=== PATIENT | female | born 1960 | race Caucasian/White ===

== ENCOUNTER → 2017-12-17 | Outpatient (REF) | payer BC | LOC: M SFHCWAGY 10:05 | DX: Z12.4 Encounter for screening for malignant neoplasm of cervix (principal) | CPT/HCPCS: G0123 ==

== ENCOUNTER → 2017-12-17 | Outpatient (CLI) | payer BC | LOC: M WHC 09:36 | DX: Z12.31 Encounter for screening mammogram for malignant neoplasm of breast (principal) ==

== ENCOUNTER 2018-12-20 08:50 | Day surgery (SDC) | payer BC ==
[~2018-12-20] VITALS: Ht 165.1 cm; Wt 85.9 kg
[2018-12-20] MEDS ORDERED: LISI40TA PO (09:02)
[2018-12-20] MEDS ORDERED: ASPI81TA85 PO (09:02)
[2018-12-20] MEDS ORDERED: AMOX500T2 (09:02)
[2018-12-20] MEDS ORDERED: CHLO125TA PO (09:02)
[2018-12-20] MEDS ORDERED: LEVO112T2 (09:02)
[2018-12-20 09:43] LABS: HEMATOCRIT 39.4 % (36.0-47.0); HEMOGLOBIN 13.2 g/dl (12.0-15.5); MEAN CORPUSCULAR HEMOGLOBIN 29.8 pg (27.0-33.0); MEAN CORPUSCULAR HGB CONC 33.5 g/dl (32.0-36.5); MEAN CORPUSCULAR VOLUME 88.9 fl (80.0-96.0); PLATELET COUNT, AUTOMATED 416 10^3/uL (150-450); RED BLOOD COUNT 4.43 10^6/uL (4.00-5.40); WHITE BLOOD COUNT 15.8 10^3/uL (4.0-10.0)
[2018-12-20] MEDS ORDERED: MORPHINE 2 MG/ML 1ML SYRINGE (J2270) IV ONE ×2 (09:45→17:45)
[2018-12-20 10:03] LABS: BLOOD UREA NITROGEN 28 MG/DL (7-18); CALCIUM LEVEL 9.5 MG/DL (8.5-10.1); CARBON DIOXIDE LEVEL 25 MEQ/L (21-32); CHLORIDE LEVEL 103 MEQ/L (98-107); CREATININE FOR GFR 0.98 MG/DL (0.55-1.30); GLOMERULAR FILTRATION RATE > 60.0 (>51); GLUCOSE, FASTING 111 MG/DL (70-100); POTASSIUM SERUM 3.6 MEQ/L (3.5-5.1); SODIUM LEVEL 138 MEQ/L (136-145)
[2018-12-20] MEDS ORDERED: NS 1,000 ML IV ONE (10:15)
[2018-12-20] MEDS ORDERED: ONDANSETRON 4MG/2ML VIAL (J2405) IV ONE ×2 (10:30→17:45)
--- NOTE | 2018-12-20 11:03 | REP ---
ULTRASOUND LEFT PERINEUM: Real-time sonographic evaluation of the left perineum performed at the site of swelling and redness in the inner groin and upper labia. At that location, there is heterogeneous signal suggesting abscess and phlegmon. This measures approximately 5.9 x 3.0 x 3.4 cm. Electronically Signed by Tan Stark MD 12/20/2018 11:06 A
[2018-12-20] MEDS ORDERED: METOCLOPRAMIDE INJ 10MG/2ML VIAL (J2765) IV ONE (11:45)
[2018-12-20] MEDS ORDERED: LIDOCAINE 2% MDV 20 ML VIAL SC ONE (12:15)
[2018-12-20] MEDS ORDERED: SYNT100T PO (13:54)
[2018-12-20] MEDS ORDERED: KETOROLAC 30 MG/ML VIAL (J1885) IV PRN (18:15)
[2018-12-20] MEDS ORDERED: ONDANSETRON 4MG/2ML VIAL (J2405) IV PRN ×2 (18:15→22:15)
[2018-12-20] MEDS ORDERED: MORPHINE 4 MG/ML 1ML VIAL/SYRINGE (J2270) IV PRN ×2 (18:15)
[2018-12-20] MEDS ORDERED: LIDOCAINE 2% INJ 100 MG/5 ML SDV (FOR ANES.) As Ordered ONE (19:40)
[2018-12-20] MEDS ORDERED: ONDANSETRON 4MG/2ML VIAL (J2405) As Ordered ONE (19:40)
[2018-12-20] MEDS ORDERED: dexameTHASONE 4 MG/ML 1ML VIAL (J1100) As Ordered ONE (19:40)
[2018-12-20] MEDS ORDERED: fentaNYL 100 MCG/2 ML INJECTION (J3010) As Ordered ONE (19:41)
[2018-12-20] MEDS ORDERED: MIDAZOLAM INJ 2 MG/2 ML VIAL (J2250) As Ordered ONE (19:41)
[2018-12-20] MEDS ORDERED: BUPIVACAINE HCL 0.5% 30 ML VIAL As Ordered ONE (20:39)
[2018-12-20] MEDS: PIPERACILLIN/TAZOBACTAM SOD 3.375 GM in D5W MINI-BAG PLUS 50 ML IV SCH (21:15)
[2018-12-20] MEDS ORDERED: METOCLOPRAMIDE INJ 10MG/2ML VIAL (J2765) As Ordered ONE (21:17)
[2018-12-20] MEDS ORDERED: PHENYLephrine HCL 500 MCG/5 ML (100MCG/ML) SYRINGE (J2370) As Ordered ONE (21:21)
[2018-12-20] MEDS ORDERED: KETOROLAC 60 MG/2 ML VIAL (J1885) As Ordered ONE (21:33)
[2018-12-20] MEDS: LR 1,000 ML IV SCH ×2 (21:51→22:50)
[2018-12-20] MEDS ORDERED: ACETAMINOPHEN TAB 650MG DOSE (2X325MG) PO PRN (22:00)
[2018-12-20] MEDS ORDERED: fentaNYL 100 MCG/2 ML INJECTION (J3010) IV PRN (22:15)
[2018-12-20] MEDS ORDERED: PERCOCET 5MG/325MG TAB PO PRN (22:15)
[2018-12-20] MEDS ORDERED: LR 1,000 ML IV SCH (22:15)
[2018-12-20] MEDS ORDERED: METOCLOPRAMIDE INJ 10MG/2ML VIAL (J2765) IV PRN (22:15)
[2018-12-20] MEDS ORDERED: MEPERIDINE INJ 25 MG/ML VIAL (J2175) IV PRN (22:15)
[2018-12-20] MEDS ORDERED: PERCOCET 5MG/325MG TAB As Ordered ONE (22:16)
[2018-12-20 23:00] VITALS: BP 112/54
[2018-12-20 23:30] VITALS: BP 105/52
[2018-12-21] VITALS (8 sets, daily range): BP systolic 91–121; BP diastolic 50–58
[2018-12-21] MEDS: PIPERACILLIN/TAZOBACTAM SOD 3.375 GM in D5W MINI-BAG PLUS 50 ML IV SCH ×4 (01:28→18:41)
[2018-12-21] MEDS: LEVOTHYROXINE 100MCG TABLET (0.1MG) PO SCH (06:08)
--- NOTE | 2018-12-21 08:06 | RO ---
DATE OF PROCEDURE: 12/20/2018 PREOPERATIVE DIAGNOSIS: Perirectal abscess. POSTOPERATIVE DIAGNOSIS: Perirectal abscess. PROCEDURE PERFORMED: Incision and drainage of a large left anterior perirectal abscess. SURGEON: Dr. Alfred Quinones AGRICULTURAL COMMODITIES INSPECTOR: ANESTHESIA: General anesthesia with a LMA. INDICATIONS FOR PROCEDURE: The patient is a 57-year-old woman with a roughly 1-week history of progressive swelling and pain in a left anterior perirectal position. She presented to the emergency department today and was found to have a definite abscess. The patient is now for exam under anesthesia and incision and drainage of her abscess. OPERATIVE PROCEDURE: The patient was brought to the operating room and was placed under general anesthesia using a LMA. The patient's lower extremities were placed into padded leg holders and these were elevated to expose the perineum. The perineum was prepped and draped in a sterile fashion. Inspection revealed significant swelling and induration beginning at about the 1:00 position with 12:00 at the anterior midline. This extended all the way back to about the 3:00 to 3:30 position. There was some faint erythema extending further back on the left buttock, but there was no significant surrounding induration. A digital rectal examination revealed no palpable mucosal abnormalities and there was no induration on the patient's right side or posteriorly at all. The point of maximal fluctuance was identified at about the 2:00 position. A radial incision about 1.5 cm to 2 cm was made using the needle tip cautery. As this was deepened into the subcutaneous tissues, a large abscess was entered and some thick dark pus was released. Swabs were obtained for aerobic and anaerobic cultures. A large amount of pus was then suctioned from the cavity using the suction. The incision was extended to approximately 3-3.5 cm. Palpation through the incision showed that the cavity was quite distinct. There did not appear to be any significant tracking past the 3:30 position on the left and the abscess extended anteriorly just about to the level of the posterior wall of the vagina. The wound was palpated and again did not seem to extend any further with a fairly discrete cavity. After this had been completely evacuated, hemostasis at the incision was ensured with the cautery. Approximately 10 mL of 0.25% Marcaine were infiltrated along the wound edges. The wound was filled gently with some saline moistened gauze and an ABD pad was applied. The patient tolerated the procedure well without apparent complication. She was awakened in the operating room, extubated and moved to the recovery room in stable condition. MARLINE
[2018-12-21] MEDS: ASPIRIN 81 MG ENTERIC TAB PO SCH (08:53)
[2018-12-21] MEDS: LISINOPRIL 40 MG TAB PO SCH (08:54)
[2018-12-21] MEDS: CHLORTHALIDONE 12.5MG PER 1/2 TABLET PO SCH (08:54)
[2018-12-21] MEDS: LR 1,000 ML IV SCH ×2 (09:31→18:15)
[2018-12-21] MEDS: NORCO, ANEXSIA 5/325MG TABLET (HYDROcodone/ACETAMINOPHEN) PO PRN (15:08)
[2018-12-22] VITALS: BP 102/51
[2018-12-22] MEDS: PIPERACILLIN/TAZOBACTAM SOD 3.375 GM in D5W MINI-BAG PLUS 50 ML IV SCH ×3 (01:57→13:30)
[2018-12-22 04:00] VITALS: BP 101/54
[2018-12-22] MEDS: LEVOTHYROXINE 100MCG TABLET (0.1MG) PO SCH (06:05)
[2018-12-22] MEDS: ASPIRIN 81 MG ENTERIC TAB PO SCH (07:59)
[2018-12-22 08:00] VITALS: BP 125/76
[2018-12-22] MEDS: NORCO, ANEXSIA 5/325MG TABLET (HYDROcodone/ACETAMINOPHEN) PO PRN (08:00)
[2018-12-22] MEDS: CHLORTHALIDONE 12.5MG PER 1/2 TABLET PO SCH (08:11)
[2018-12-22] MEDS: LISINOPRIL 40 MG TAB PO SCH (08:11)
[2018-12-22 08:15] VITALS: BP 125/76
[2018-12-22] MEDS ORDERED: HYDR-4571 PO (13:15)
[2018-12-22] MEDS ORDERED: BACT800T5 PO (13:15)
--- NOTE | 2018-12-23 08:00 | IPN ---
DATE: 12/21/2018 HISTORY: Postoperative day #1 from incision and drainage of a large perirectal abscess. She has generally done fairly well postop. She does have some persistent tenderness and noted some bleeding with removal of her packing earlier in the day. Vital signs show that she has been afebrile since surgery. Her pulse is in the 60s and her blood pressure is good. Intake and output shows that she has had an excellent oral intake today with an excellent urine output as well. PHYSICAL EXAMINATION: Shows that the patient is much more comfortable than she had been preop. Skin is warm and dry. Heart and lung exams are unremarkable. She has a dressing in place on the perineum. LABORATORY FINDINGS: Her gram stain from her wound showed some white cells and gram-negative rods with identification of the organism pending. IMPRESSION: The patient is generally doing well from her abscess drainage with significant decrease in her pain. PLAN: The patient has been encouraged to perform three times daily showers or warm soaks to the area to keep the wound open. She will remain on her Zosyn until discharge and then based on her culture we will determine whether to continue her on the Augmentin she was taking or change this to something else. She was encouraged to increase her activity and I anticipate she will be ready for discharge in the morning. MARLINE
--- NOTE | 2018-12-23 08:01 | IPN ---
DATE: 12/22/2018 HISTORY: The patient is now postop day #2 from incision and drainage of a moderately large left anterior perirectal abscess. She is feeling much better. She still notes some induration at the area of the wound but her tenderness is significantly less. Shows that she has been afebrile with stable vitals. Intake and output shows that she has an excellent urine output and has had several bowel movement today as well. Physical exam shows that she still has some faint erythema over the area of the previous abscess. Her incision and drainage ( I and D) site has a small amount of clot within the wound. There is some mild residual induration around the boundary of her abscess. LABORATORY STUDY: Her culture has now grown Klebsiella pneumonia. This is resistant to ampicillin and ampicillin sulbactam. The sensitivities are reviewed. IMPRESSION: The patient is doing well now 2 days postop from drainage of her Klebsiella pneumoniae perirectal abscess. PLAN: She will be discharged home. She is to continue at least three times daily warm soaks or showers to the area and to keep the area covered with a light dressing to catch any drainage. I will give her prescription for Septra double-strength one tablet twice daily for 5 days as the Klebsiella was sensitive to trimethoprim sulfamethoxazole. She can pursue activity as tolerated and take a regular diet. I will give her a prescription for a few [place] tablets to take as needed, but she can, otherwise, take [id number] meds. We will schedule for an appointment to followup in about a week in the office to assess healing. MARLINE
== END 2018-12-22 14:10 | disposition home or self-care (01) ==
LOC: M ED 08:50 → EDBEDREQ 16:48 → M SDC 18:15 → M PED 22:50 → M SDC 12-22 14:10
PROVIDERS: ATTEND Surgery
DX: K61.1 Rectal abscess (principal); I10 Essential (primary) hypertension; E03.9 Hypothyroidism, unspecified; E78.5 Hyperlipidemia, unspecified; E66.9 Obesity, unspecified; Z68.31 Body mass index [BMI] 31.0-31.9, adult; Z98.84 Bariatric surgery status
CPT/HCPCS: 36415; 46040; 76857; 80048; 85027; 87040; 87070; 87075; 87076; 87077; 87186; 87205; 96374; 96375; 96376; 99284; J1100; J1885; J2250; J2270; J2370; J2405; J2543; J2765; J3010

== ENCOUNTER → 2019-08-02 | Outpatient (CLI) | payer BC ==
[~2019-08-02] MED LIST: AMOX500T2; ASPI81TA85 PO; BACT800T5 PO; CHLO125TA PO; HYDR-4571 PO; LEVO112T2; LISI40TA PO; SYNT100T PO
--- NOTE | 2019-08-02 12:15 | REPMRS ---
Patient History Family history of breast cancer at age 50 or over in maternal aunt, breast cancer under age 50 in maternal cousin. Digital Woman Screen Mammo: August 02, 2019 - Exam #: [id number] Bilateral CC and MLO view(s) were taken. Technologist: Anni Esquivel, Technologist Prior study comparison: December 17, 2017, digital woman screen mammo performed at [facility]. October 10, 2015, digital woman screen mammo performed at [facility]. November 28, 2013, digital woman screen mammo performed at [facility]. FINDINGS: There are scattered fibroglandular densities. There is a stable nodular density superiorly in the right breast unchanged from the 2013 prior study. There has been no change in the appearance of the mammogram from the prior studies. There is a mild amount of scattered fibroglandular density which is fairly symmetric. There is no interval development of dominant mass, architectural distortion, or grouped microcalcification suggestive of malignancy. 3-D tomosynthesis shows no additional findings. Assessment: BI-RADS/ACR category 2 mammogram. Benign Findings. Recommendation Routine screening mammogram of both breasts in 1 year (for women over age 40). This patient's Lifetime Breast Cancer Risk is estimated at 10.1 %. This mammogram was interpreted with the aid of an FDA-approved computer-aided dectection system. Electronically Signed By: Abdullahi Wisdom MD 08/02/19 [id number]
== END ==
LOC: M WHC 08:40
PROVIDERS: ATTEND Nurse Practitioner Family
DX: Z12.31 Encounter for screening mammogram for malignant neoplasm of breast (principal)

== ENCOUNTER → 2020-08-27 | Outpatient (CLI) | payer BC ==
[~2020-08-27] MED LIST changes: -ASPI81TA85 PO; +ASPI81TA86 PO
--- NOTE | 2020-08-27 15:02 | REP ---
INDICATION: N64.52 NIPPLE DISCHARGE; LEFT NIPPLE DISCHARGE - N64.52; N64.52 NIPPLE DISCHARGE - LEFT. One week history of intermittent clear watery discharge left nipple. COMPARISON: Mammography August 02, 2019, December 17, 2017, and October 10, 2015. TECHNIQUE: Bilateral CC and MLO) view(s) were taken. 3D tomography is carried out. Targeted left breast retroareolar sonography is carried out. FINDINGS: Scattered fibroglandular elements are seen bilaterally. No suspicious or dominant density is seen. No microcalcification or architectural distortion is seen. No worrisome skin change is appreciated. 3-D tomosynthesis shows no additional finding. No dominant density is seen. No architectural distortion or micro calcific grouping is seen. No worrisome skin change. No abnormality noted in the subareolar region on the left or right. The [place] volumetric breast density pattern is B. Targeted left subareolar sonography: Subareolar sonography demonstrates heterogeneous fibroglandular background echotexture. No dilated ducts, mass, or cyst is seen. Unremarkable sonography.. IMPRESSION: BIRADS/ACR category 1 negative mammographic and left breast sonographic findings. Clinical follow-up is advised.. This patient's Tyrer-Cuzick lifetime breast cancer risk assessment score is 9.7%. This mammogram was interpreted with the aid of an FDA-approved computer-aided detection system. The patient states she had a clinical breast exam in August of 2020. The patient letter being requested is M2. RECOMMENDATION: Repeat screening mammography recommended 1 year (for women over 40). Clinical follow-up. <Electronically signed by Abdullahi Wisdom > 08/27/20 [id number]
== END ==
LOC: M WHC 12:32
PROVIDERS: ATTEND Nurse Practitioner Family
DX: N64.52 Nipple discharge (principal)
CPT/HCPCS: 76642; 77066; G0279

== ENCOUNTER → 2020-08-27 | Outpatient (REF) | payer BC | LOC: M PLALAB 13:41 | PROVIDERS: ATTEND Nurse Practitioner Family | DX: N64.52 Nipple discharge (principal) ==

== ENCOUNTER → 2020-08-27 | Outpatient (REF) | payer BC | LOC: M SFHCWAGY 18:58 | PROVIDERS: ATTEND Nurse Practitioner Family | DX: N64.52 Nipple discharge (principal) ==

== ENCOUNTER → 2021-10-25 | Outpatient (CLI) | payer BC ==
[~2021-10-25] MED LIST changes: +BIOT2500 PO; +CVS1CHW13 PO; +ECOT81TA5 PO; +LEVO88TA3 PO; -LISI40TA PO; +LISI40TA4 PO; +QUERPOW2 PO; +VITA200015 PO; +VITA500064 PO; +VITMTA PO
== END ==
LOC: M LABSMTC 11:44
PROVIDERS: ATTEND Anesthesiology
DX: Z20.828 Contact with and (suspected) exposure to other viral communicable diseases (principal); Z11.59 Encounter for screening for other viral diseases

== ENCOUNTER 2021-10-30 06:54 | Day surgery (SDC) | payer BC ==
[~2021-10-30] VITALS: Ht 162.6 cm; Wt 80.7 kg
[~2021-10-30 06:54] MED LIST changes: +NS 1,000 ML IV ONE; -VITA200015 PO; +VITA200035 PO
[2021-10-30] MEDS ORDERED: propofoL 200 MG/20 ML VIAL As Ordered ONE ×2 (07:21→07:22)
[2021-10-30] MEDS ORDERED: LIDOCAINE 2% 100MG/5ML SDV (FOR ANES.) As Ordered ONE (07:21)
[2021-10-30 09:00] VITALS: BP 92/51
== END 2021-10-30 09:16 | disposition home or self-care (01) ==
LOC: M OPP 06:54
PROVIDERS: ATTEND Surgery
DX: Z12.11 Encounter for screening for malignant neoplasm of colon (principal); K57.30 Diverticulosis of large intestine without perforation or abscess without bleeding; K64.8 Other hemorrhoids; Z79.82 Long term (current) use of aspirin; Z79.899 Other long term (current) drug therapy; Z98.84 Bariatric surgery status

== ENCOUNTER 2022-08-09 15:40 | Emergency (ER) | payer BC ==
[~2022-08-09] VITALS: Ht 165.1 cm; Wt 80.0 kg
[~2022-08-09 15:40] MED LIST changes: -NS 1,000 ML IV ONE
[2022-08-09 15:41] VITALS: BP 129/66
== END 2022-08-09 20:16 | disposition home or self-care (01) ==
LOC: M ED 15:40
DX: S82.451A Displaced comminuted fracture of shaft of right fibula, initial encounter for closed fracture (principal); W00.0XXA Fall on same level due to ice and snow, initial encounter; I10 Essential (primary) hypertension; Z98.84 Bariatric surgery status; Y92.410 Unspecified street and highway as the place of occurrence of the external cause; Z79.82 Long term (current) use of aspirin; Z79.811 Long term (current) use of aromatase inhibitors; Z79.899 Other long term (current) drug therapy

== ENCOUNTER → 2022-08-25 | Outpatient (CLI) | payer BC | LOC: M SOG 08:31 | PROVIDERS: ATTEND Orthopaedic Surgery Hand Surgery | DX: S82.431A Displaced oblique fracture of shaft of right fibula, initial encounter for closed fracture (principal) ==

== ENCOUNTER → 2022-09-22 | Outpatient (CLI) | payer BC | LOC: M SOG 08:09 | PROVIDERS: ATTEND Physician Assistant | DX: S82.431D Displaced oblique fracture of shaft of right fibula, subsequent encounter for closed fracture with routine healing (principal) ==

== ENCOUNTER → 2023-01-05 | Outpatient (CLI) | payer BC ==
[~2023-01-05] MED LIST changes: -VITA500064 PO; +VITA500065 PO
== END ==
LOC: M WUC 14:13
PROVIDERS: ATTEND Internal Medicine
DX: R05.9 Cough, unspecified (principal); R06.2 Wheezing

== ENCOUNTER → 2023-02-01 | Outpatient (CLI) | payer BC ==
[~2023-02-01] MED LIST changes: +METHACHOLINE KIT INH ONE
== END ==
LOC: M CARPUL 13:36
PROVIDERS: ATTEND Internal Medicine
DX: R05.3 Chronic cough (principal)

== ENCOUNTER → 2023-11-23 | Outpatient (CLI) | payer BC ==
[~2023-11-23] MED LIST changes: -METHACHOLINE KIT INH ONE
== END ==
LOC: M WUC 10:12
PROVIDERS: ATTEND Family Medicine
DX: M54.50 Low back pain, unspecified (principal)